=== PATIENT | male | born 1965 | race Caucasian/White ===

== ENCOUNTER 2021-07-11 16:14 | Emergency (ER) | payer OTHER, SELFPAY ==
[2021-07-11 16:24] VITALS: BP 137/88; PULSE 81; RESP 18; TEMP 36.7; O2SAT 98
--- NOTE | 2021-07-11 17:04 | ED.WOUNDLAC ---
HPI - Wound/Laceration General Chief Complaint: Wound/Laceration Stated Complaint: cut in head Time Seen by Provider: 07/11/21 17:05 Source: patient and RN notes reviewed Mode of arrival: ambulatory Limitations: no limitations History of Present Illness HPI narrative: 55-year-old male presents concern for puncture wound to the back of the head. Reports yesterday he was in the attic, hit the back of his head on a nail. Reports he saw his primary care doctor who evaluated him today for the injury. Reports he was sent here for tetanus vaccination. He denies any loss of consciousness, headache, vomiting Related Data Home Medications Medication Instructions Recorded Confirmed cephalexin 07/11/21 ergocalciferol (vitamin D2) 07/11/21 lorazepam 07/11/21 losartan 07/11/21 metformin mg 07/11/21 metoprolol succinate PO 07/11/21 omeprazole 07/11/21 simvastatin mg 07/11/21 Allergies Allergy/AdvReac Type Severity Reaction Status Date / Time No Known Allergies Allergy Verified 03/02/19 18:43 Review of Systems Review of Systems: CONSTITUTIONAL: Denies malaise, chills, sweats, or fever. EYES: Denies visual changes SKIN: Reports puncture wound to the back of the head GI: Denies vomiting NEUROLOGIC: Denies headache. All systems reviewed & are unremarkable except as noted in HPI and below PMFSH Comments At time of signature, agree with nursing past medical, surgical, social and family history. There is no relevant family history pertinent to the presenting complaint Exam Narrative: GENERAL: Well-appearing, well-nourished, and in no acute distress. HEAD: Normocephalic, atraumatic. EYES: PERRLA, conjunctivae clear, and EOMI. ENT: Mucous membranes moist. NECK: Supple. No lymphadenopathy CHEST: Clear to auscultation. No respiratory distress. HEART: Regular rate and rhythm. SKIN: Warm, dry. 1 cm irregular laceration, scabbed, approximated noted to the posterior scalp NEURO: Alert and oriented x3. No focal deficits PSYCH: Normal mood and affect Course Course Emergency Course: Patient is aware of diagnosis, understands and agrees to treatment plan. Anticipatory guidance given. Patient agrees to follow-up as directed and is aware of reasons to seek care at the emergency department. Portions of this record may have been created with voice recognition software Vital Signs Vital signs: Vital Signs Temperature 98.1 F 07/11/21 16:24 Pulse Rate 81 07/11/21 16:24 Respiratory Rate 18 07/11/21 16:24 Blood Pressure 137/88 07/11/21 16:24 Pulse Oximetry 98 07/11/21 16:24 Temperature 98.1 F 07/11/21 16:24 Pulse Rate 81 07/11/21 16:24 Respiratory Rate 18 07/11/21 16:24 Blood Pressure 137/88 07/11/21 16:24 Pulse Oximetry 98 07/11/21 16:24 Reviewed. MDM - Wound/Laceration MDM Narrative Medical decision making narrative: Exam findings show no acute concerns or changes; patient is non-toxic appearing and is in no distress. Patient is appropriate for outpatient treatment and follow-up. Critical Care Time Critical Care Time Critical Care Time: No Discharge Plan Discharge Clinical Impression: Laceration Patient Disposition: Home, Self-Care Condition: Stable Instructions: Laceration (ED) Additional Instructions: Keep wound clean, and dry. Apply antibiotic ointment twice daily. Cover with bandage as needed to prevent contamination. Clean with soap and water twice daily, but do not soak, take baths, or swim until wound is completely healed. Do not clean with hydrogen peroxide. If any signs of infection such as redness, swelling, increasing pain, drainage of purulent discharge, streaks up your extremity develop, seek medical attention immediately. Prescriptions: No Action losartan 50 mg tablet RF: 0 metformin 500 mg tablet RF: 0 metoprolol succinate 50 mg tablet extended release 24 hr PO RF: 0 cephalexin 500 mg capsule
[2021-07-11] MEDS: TETANUS,DIPHTHERIA,AC PERTUSSIS ADULT (0.5 ML) BOOSTRIX IM (17:09)
== END 2021-07-11 17:19 | disposition home or self-care (01) ==
PROVIDERS: Emergency Provider Nurse Practitioner; PCP Emergency Medicine
DX: S01.01XA Laceration without foreign body of scalp, initial encounter (principal); W45.0XXA Nail entering through skin, initial encounter; Z23 Encounter for immunization; E78.00 Pure hypercholesterolemia, unspecified; I10 Essential (primary) hypertension; K21.9 Gastro-esophageal reflux disease without esophagitis; E11.9 Type 2 diabetes mellitus without complications
CPT/HCPCS: 90471; 90715; 99212; G0463

== ENCOUNTER 2023-07-02 15:31 | Outpatient (CLI) | payer OTHER, SELFPAY ==
--- NOTE | ~2023-07-02 | XR_ITS ---
EXAMINATION: XR ankle RT min 3V DATE: 07/02/2023 15:53 INDICATION: Right ankle pain and swelling. TECHNIQUE: 4 views of right ankle were obtained. COMPARISON: None. FINDINGS: Bone alignment is normal. No fracture. There is mild midfoot osteoarthritis. There is mild ankle joint osteoarthritis. There are enthesophytes at the posterior and plantar aspects of calcaneal tuberosity. There is ankle soft tissue swelling. IMPRESSION: 1. Mild particular osteoarthritis. Reviewed, dictated and finalized at location A.
--- NOTE | ~2023-07-02 | US_ITS ---
EXAMINATION: US venous doppler LE RT DATE: 07/02/2023 16:10 INDICATION: Right lower limb pain and swelling. TECHNIQUE: Grayscale ultrasound images without and with compression and Doppler ultrasound images of the right lower extremity veins were obtained. COMPARISON: None. FINDINGS: The visualized portions of right common femoral vein, profunda (deep) femoral vein, femoral vein, per dasilva veins, posterior tibial veins, and greater saphenous vein outflow are patent. There is thrombus in right popliteal vein. There is a moderate-sized Kwan's cyst. IMPRESSION: 1. Deep vein thrombosis involving right popliteal vein. 2. Moderate-sized right Kwan's cyst. Reviewed, dictated and finalized at location A.
== END 2023-07-02 15:32 | disposition home or self-care (01) ==
PROVIDERS: PCP Emergency Medicine; Visit Provider Emergency Medicine
DX: M79.89 Other specified soft tissue disorders (principal); M19.071 Primary osteoarthritis, right ankle and foot; I82.431 Acute embolism and thrombosis of right popliteal vein; M71.21 Synovial cyst of popliteal space [Baker], right knee
CPT/HCPCS: 73610; 93971

== ENCOUNTER 2023-07-02 16:39 | Emergency (ER) | payer OTHER, SELFPAY ==
[2023-07-02 16:51] VITALS: BP 175/89; PULSE 73; RESP 16; TEMP 36.7; O2SAT 98
--- NOTE | 2023-07-02 18:11 | ED.EXTPRO ---
HPI - Extremity Problem General Chief complaint: Extremity Problem,Nontraumatic Stated complaint: Positive RLE US Time Seen by Provider: 07/02/23 17:39 History of Present Illness HPI Narrative: Patient is a 57-year-old male presenting with abnormal ultrasound. Patient states that his right foot has been swollen for several days. He called his PCP who ordered imaging which was obtained today and revealed a DVT so he was advised to come to the ER. He denies chest pain, lightheadedness, shortness of breath. Denies recent injuries, immobilization, surgery. Denies further complaints. Related Data Home Medications Medication Instructions Recorded Confirmed cephalexin 500 mg capsule 07/11/21 ergocalciferol (vitamin D2) 1,250 07/11/21 mcg (50,000 unit) capsule lorazepam 1 mg tablet 07/11/21 losartan 50 mg tablet 07/11/21 metformin 500 mg tablet mg 07/11/21 metoprolol succinate 50 mg PO 07/11/21 tablet,extended release 24 hr omeprazole 20 mg capsule,delayed 07/11/21 release simvastatin 20 mg tablet mg 07/11/21 Allergies Allergy/AdvReac Type Severity Reaction Status Date / Time No Known Allergies Allergy Verified 03/02/19 18:43 Review of Systems Review of Systems: All systems reviewed & are unremarkable except as noted in HPI and below Exam Narrative: GENERAL: Well-appearing and in no acute distress. Pleasant cooperative HEAD: Normocephalic, atraumatic. EYES: PERRLA and EOMI. ENT: Mucous membranes moist. NECK: Supple. CHEST: Clear to auscultation. No respiratory distress. HEART: Regular rate and rhythm. Normal peripheral pulses. ABDOMEN: Nondistended, nontender EXTREMITIES: Normal range of motion. Mild edema and erythema of the right foot and ankle, DP pulses 2+ bilaterally SKIN: Warm, dry, no rash. NEURO: Alert and oriented x3. PSYCH: Normal mood and affect. Course Vital Signs Vital signs: Vital Signs Temperature 98.1 F 07/02/23 16:51 Pulse Rate 73 07/02/23 16:51 Respiratory Rate 16 07/02/23 16:51 Blood Pressure 175/89 H 07/02/23 16:51 Pulse Oximetry 98 07/02/23 16:51 Oxygen Delivery Room Air 07/02/23 16:51 Temperature 98.1 F 07/02/23 16:51 Pulse Rate 73 07/02/23 16:51 Respiratory Rate 16 07/02/23 16:51 Blood Pressure 175/89 H 07/02/23 16:51 Pulse Oximetry 98 07/02/23 16:51 Oxygen Delivery Room Air 07/02/23 16:51 MDM - Extremity (Nontraumatic) MDM Narrative Medical decision making narrative: Patient is a 57-year-old male presenting with a DVT in his right leg per outpatient ultrasound. Vitals are stable. He denies any chest pain, shortness of breath, lightheadedness. He is not tachycardic or hypoxic. 2+ DP pulses bilaterally. We will start him on Eliquis starter pack and advised close PCP follow-up. Strict return precautions were given. Patient voiced understanding and is agreeable with plan. Discharged in stable condition. Differential Diagnosis Differential diagnosis: Likely superficial thrombophlebitis, lower extremity edema and deep vein thrombosis of lower extremity Medical Records Attestation: I reviewed the patient's medical records. Critical Care Time Critical Care Time Critical Care Time: No Discharge Plan Discharge Clinical Impression: Deep vein thrombosis of lower extremity Patient Disposition: Home, Self-Care Condition: Stable Instructions: Apixaban (By mouth), Deep Vein Thrombosis (DC) Additional Instructions: The ultrasound today shows a blood clot in your right leg. Please start the blood thinners as prescribed. Please make sure that you follow-up closely with your PCP. If your symptoms worsen, you develop chest pain, shortness of breath, numbness or weakness, vomiting, fevers >100.4F, or other concerning symptoms arise, please return to the ER. Prescriptions: New Eliquis DVT-PE Treat 30D Start 5 mg (74 tabs) tablets,dose pack See Rx Instructions .ROUTE .COMPLEX Qty: 74 0RF Rx I
== END 2023-07-02 18:53 | disposition home or self-care (01) ==
PROVIDERS: Emergency Provider Emergency Medicine; PCP Emergency Medicine
DX: I82.401 Acute embolism and thrombosis of unspecified deep veins of right lower extremity (principal); Z79.84 Long term (current) use of oral hypoglycemic drugs
CPT/HCPCS: 73610; 93971; 99283

== ENCOUNTER 2023-08-17 15:37 | Emergency (ER) | payer OTHER, MEDICAID, SELFPAY ==
[2023-08-17 15:50] VITALS: BP 154/85; PULSE 91; RESP 18; TEMP 36.7; O2SAT 98
[2023-08-17] MEDS: LIDOCAINE HCL 1% LOCAL INJ 2 ML AMPUL 6 ML INFILTRATE (16:01)
--- NOTE | 2023-08-17 16:06 | ED.SKABFB ---
HPI - Skin/Abscess/Foreign Bdy General Chief complaint: Skin/Abscess/Foreign Body Stated complaint: left thumb injury Time Seen by Provider: 08/17/23 15:53 Source: patient and RN notes reviewed Mode of arrival: ambulatory Limitations: no limitations History of Present Illness HPI narrative: Patient presents today complaining of pain and swelling to his left thumb at the finger nail fold x3 days. States 2 days prior to onset he was chewing on the cuticle area. No [id number] treatment prior to arrival. Denies numbness or tingling. Related Data Home Medications Medication Instructions Recorded Confirmed ergocalciferol (vitamin D2) 1,250 07/11/21 mcg (50,000 unit) capsule lorazepam 1 mg tablet 07/11/21 losartan 50 mg tablet 07/11/21 metformin 500 mg tablet mg 07/11/21 metoprolol succinate 50 mg PO 07/11/21 tablet,extended release 24 hr omeprazole 20 mg capsule,delayed 07/11/21 release simvastatin 20 mg tablet mg 07/11/21 Allergies Allergy/AdvReac Type Severity Reaction Status Date / Time No Known Allergies Allergy Verified 08/17/23 15:40 Review of Systems Review of Systems: CONSTITUTIONAL: Denies body aches, fever, chills, or sweats. EYES: Denies visual changes, redness, or discharge. ENT: Denies rhinorrhea, congestion, sore throat, or otalgia. CARDIOVASCULAR: Denies chest pain, palpitations, or edema. RESPIRATORY: Denies cough or dyspnea. GASTROINTESTINAL: Denies abdominal pain, nausea, vomiting, or diarrhea. GENITOURINARY: Denies dysuria or hematuria. SKIN: + swelling and pain to the left thumb MUSCULOSKELETAL: Denies back pain, joint pain, or myalgia. NEUROLOGIC: Denies headache, numbness, tingling, or weakness. PSYCH: Denies depression or anxiety. [facility] Past Medical History Medical History (Updated 08/17/23 @ 16:12 by Salma Pleitez, [facility], ) Diabetes DVT (deep venous thrombosis) High cholesterol Hypertension Comments At time of signature, I have reviewed and agree with nursing past medical, surgical, social and family history unless otherwise noted. Please see nursing chart for further information. There is no relevant family history pertinent to the presenting complaint Exam Narrative: GENERAL: Well-appearing, well-nourished, and in no acute distress. HEAD: Normocephalic, atraumatic. EYES: EOMI. No redness or drainage. Conjunctivae normal. ENT: Mucous membranes pink and moist. NECK: Normal AROM. CHEST: No respiratory distress. EXTREMITIES: Left thumb: Tenderness, mild edema to the nail fold with purulent green drainage underneath the skin. Fingernail is unaffected SKIN: Warm, dry, no rash. Capillary refill normal. Normal skin turgor. NEURO: No focal deficits. Alert and oriented x3. Gait steady. PSYCH: Normal affect. No signs of depression or anxiety. Course Course Level of Care: Express Care Visit Vital Signs Vital signs: Vital Signs Temperature 98.1 F 08/17/23 15:50 Pulse Rate 91 08/17/23 15:50 Respiratory Rate 18 08/17/23 15:50 Blood Pressure 154/85 H 08/17/23 15:50 Pulse Oximetry 98 08/17/23 15:50 Oxygen Delivery Room Air 08/17/23 15:50 Temperature 98.1 F 08/17/23 15:50 Pulse Rate 91 08/17/23 15:50 Respiratory Rate 18 08/17/23 15:50 Blood Pressure 154/85 H 08/17/23 15:50 Pulse Oximetry 98 08/17/23 15:50 Oxygen Delivery Room Air 08/17/23 15:50 Reviewed Procedures Abscess I/D hand: Date of Incision: 08/17/23 Time of Incision: 16:15 Side (if applicable): left Local Anesthetic: none (Digital block) Technique: incised with #11 blade Amount of fluid expressed (mL): 0.5 Irrigation: No Packing used?: none I&D Results: Pus and Blood Abcess I&D Additional Comments: Dressed with Band-Aid. Nerve Block Nerve Block 1: Nerve block date: 08/17/23 Nerve block time: 16:10 Time out performed: No Local Ane
== END 2023-08-17 16:25 | disposition home or self-care (01) ==
PROVIDERS: Emergency Provider Nurse Practitioner; PCP Emergency Medicine
DX: L03.012 Cellulitis of left finger (principal); E11.9 Type 2 diabetes mellitus without complications; E78.00 Pure hypercholesterolemia, unspecified; I10 Essential (primary) hypertension; Z86.718 Personal history of other venous thrombosis and embolism
CPT/HCPCS: 10060; 99213; G0463

== ENCOUNTER → 2023-09-18 15:28 | Outpatient (CLI) | payer OTHER, MEDICAID, SELFPAY ==
--- NOTE | ~2023-09-18 | US_ITS ---
EXAMINATION:US venous doppler LE RT INDICATION:Right leg pain. History of Kwan's cyst TECHNIQUE: Multiple grayscale, color flow and Doppler images of the right lower extremity deep venous systems were obtained and reviewed. COMPARISON:Ultrasound dated 07/02/2023 FINDINGS: The common femoral, superficial femoral and popliteal veins demonstrate normal respiratory variation, augmentation and compressibility. Color flow is also seen within the posterior tibial, pe roneal, greater saphenous and profunda veins. There is a right Kwan's cyst measuring 4.4 x 1.8 x 3.5 cm. IMPRESSION: 1: No lower extremity deep venous thrombosis. Reviewed, dictated and finalized at location L. [employer]
== END ==
PROVIDERS: PCP Internal Medicine Hematology & Oncology; Visit Provider Internal Medicine Hematology & Oncology
DX: I82.431 Acute embolism and thrombosis of right popliteal vein (principal)
CPT/HCPCS: 93971

== ENCOUNTER 2023-10-05 17:22 | Emergency (ER) | payer OTHER, MEDICAID, SELFPAY ==
--- NOTE | 2023-10-05 17:27 | ED.SKABFB ---
HPI - Skin/Abscess/Foreign Bdy General Chief complaint: Skin/Abscess/Foreign Body Stated complaint: lump under left arm Time Seen by Provider: 10/05/23 17:39 Source: patient and RN notes reviewed Mode of arrival: ambulatory Limitations: dementia History of Present Illness HPI narrative: 57-year-old male presents with concern for a painful lump under his left arm. Reports he noticed it last night. Reports history of having something similar under his arm, he also reports having to have something drained on his right elbow in the past. He denies fever, aches, chills, sweats. Reports a small amount of drainage from the area MD complaint: other (Redness) Related Data Home Medications Medication Instructions Recorded Confirmed ergocalciferol (vitamin D2) 1,250 1,250 mcg PO WEEKLY 10/05/23 10/05/23 mcg (50,000 unit) capsule losartan 50 mg tablet 50 mg PO DIRECTED 10/05/23 10/05/23 metformin 500 mg tablet 500 mg PO DIRECTED 10/05/23 10/05/23 metoprolol succinate 50 mg 50 mg PO DIRECTED 10/05/23 10/05/23 tablet,extended release 24 hr Allergies Allergy/AdvReac Type Severity Reaction Status Date / Time No Known Allergies Allergy Verified 10/05/23 17:35 Review of Systems Review of Systems: CONSTITUTIONAL: Denies malaise, chills, sweats, or fever. EYES: Denies redness, or discharge. ENT: Denies rhinorrhea, congestion, swollen lips, swollen tongue CARDIOVASCULAR: Denies chest pain, palpitations, or edema. RESPIRATORY: Denies cough or dyspnea. GASTROINTESTINAL: Denies abdominal pain, nausea, vomiting SKIN: Reports redness, swelling, tenderness in the left axilla with a small amount of drainage. Denies vesicles, bullae, numbness, pain beyond proportion MUSCULOSKELETAL: Denies joint pain or myalgia. NEUROLOGIC: Denies headache. All systems reviewed & are unremarkable except as noted in HPI and below PMFSH Past Medical History Medical History (Updated 10/05/23 @ 17:47 by Donna Montgomery NP) Diabetes DVT (deep venous thrombosis) High cholesterol Hypertension Comments At time of signature, agree with nursing past medical, surgical, social and family history. There is no relevant family history pertinent to the presenting complaint Exam Narrative: GENERAL: Well-appearing, well-nourished, and in no acute distress. HEAD: Normocephalic, atraumatic. EYES: PERRLA, conjunctivae clear ENT: Mucous membranes moist. NECK: Supple. No lymphadenopathy CHEST: Clear to auscultation. No respiratory distress. HEART: Regular rate and rhythm. SKIN: Warm, dry. Erythema, induration, tenderness, warmth with sharp margins and fluctuation noted in the left axilla. No vesicles, bullae, necrosis, ecchymosis, crepitus noted. NEURO: Alert and oriented x3. PSYCH: Normal mood and affect Course Course Emergency Course: Patient is aware of diagnosis, understands and agrees to treatment plan. Anticipatory guidance given. Patient agrees to follow-up as directed and is aware of reasons to seek care at the emergency department. Portions of this record may have been created with voice recognition software Level of Care: Express Care Visit Vital Signs Vital signs: Reviewed. Procedures Abscess I/D upper extremity: Date of Incision: 10/05/23 Time of Incision: 17:48 Local Anesthetic: lidocaine 1% Amount of anesthesia used (mL): 4 Technique: incised with #11 blade Amount of fluid expressed (mL): 15 Irrigation: Yes Packing used?: iodoform MDM - Skin/Abscess/Foreign Bdy MDM Narrative Medical decision making narrative: Does not appear at this time to be erythema multiforme, bullous, SJS, TEN; no evidence at this time to suggest RMSF, NSTI, endocarditis or Lyme disease; patient looks well, nontoxic and is tolerating oral intake; no neurologic signs or symptoms; no headache, photophobia or neck pain; afebrile. Patient does not have history of of penetrating trauma, lacerati
[2023-10-05 17:32] VITALS: BP 132/75; PULSE 87; RESP 16; TEMP 37.2; O2SAT 99
== END 2023-10-05 18:11 | disposition home or self-care (01) ==
PROVIDERS: Emergency Provider Nurse Practitioner; PCP Emergency Medicine
DX: L02.412 Cutaneous abscess of left axilla (principal); E11.9 Type 2 diabetes mellitus without complications; E78.00 Pure hypercholesterolemia, unspecified; I10 Essential (primary) hypertension; Z86.718 Personal history of other venous thrombosis and embolism; Z79.84 Long term (current) use of oral hypoglycemic drugs
CPT/HCPCS: 10061; 87070; 87075; 87205; 99213; G0463

== ENCOUNTER 2023-10-06 19:07 | Emergency (ER) | payer OTHER, MEDICAID, SELFPAY ==
[2023-10-06 19:15] VITALS: BP 150/94; PULSE 87; RESP 18; TEMP 36.7; O2SAT 100
--- NOTE | 2023-10-06 19:20 | ED.WOUNDLAC ---
HPI - Wound/Laceration General Chief Complaint: Wound/Laceration Stated Complaint: Wound Check Time Seen by Provider: 10/06/23 19:20 Source: patient Mode of arrival: ambulatory Limitations: no limitations History of Present Illness HPI narrative: 57 yo M presents for wound check. Pt had I and D yesterday at [facility] and was told to remove packing today. States when he got in shower he couldn't find packing to remove and is worried and it's stuck inside abscess. All systems reviewed and negative except as noted above. Related Data Home Medications Medication Instructions Recorded Confirmed ergocalciferol (vitamin D2) 1,250 1,250 mcg PO WEEKLY 10/05/23 10/05/23 mcg (50,000 unit) capsule losartan 50 mg tablet 50 mg PO DIRECTED 10/05/23 10/05/23 metformin 500 mg tablet 500 mg PO DIRECTED 10/05/23 10/05/23 metoprolol succinate 50 mg 50 mg PO DIRECTED 10/05/23 10/05/23 tablet,extended release 24 hr Allergies Allergy/AdvReac Type Severity Reaction Status Date / Time No Known Allergies Allergy Verified 10/05/23 17:35 Review of Systems Review of Systems: CONSTITUTIONAL: Denies fever, chills, or sweats. EYES: Denies visual changes, redness, or discharge. ENT: Denies rhinorrhea, congestion, sore throat, or otalgia. CARDIOVASCULAR: Denies chest pain, palpitations, or edema. RESPIRATORY: Denies cough or dyspnea. GASTROINTESTINAL: Denies abdominal pain, nausea, vomiting, or diarrhea. GENITOURINARY: Denies dysuria or hematuria. SKIN: Denies rash or itching. Here for wound check MUSCULOSKELETAL: Denies back pain, joint pain, or myalgia. NEUROLOGIC: Denies headache, numbness, or weakness. PSYCHIATRIC: Denies anxiety or depression. All other systems reviewed are negative, except as documented in HPI. [facility] Past Medical History Medical History (Updated 10/07/23 @ 00:01 by Background Daemon) Diabetes DVT (deep venous thrombosis) High cholesterol Hypertension Comments At time of signature, agree with nursing past medical, surgical, social and family history. There is no relevant family history pertinent to the presenting complaint. Exam Narrative: GENERAL: This is a well-nourished, well-developed patient, in no apparent distress. HEAD: normocephalic, atraumatic. EYES: PERRL. Sclera clear/white. Vision is grossly intact. EARS: External ears normal NOSE: External nose normal NECK: Neck supple, non-tender without lymphadenopathy, masses or thyromegaly. CARDIOVASCULAR: Regular rate and rhythm without murmurs, gallops, or rubs. RESPIRATORY: Clear to auscultation. Breath sounds equal bilaterally. No wheezes, rales, or rhonchi. SKIN: warm, Dry, intact with no suspicious lesions or rash, good texture and turgor. fluctuant abscess to L axilla with small incision noted. no packing material. erythematous and tender on palpation. NEURO: awake, alert, and oriented to person, place and time. There were no obvious focal neurologic abnormalities. EXTREMITIES: No joint tenderness, effusion, or edema noted. Course Course Level of Care: Express Care Visit Vital Signs Vital signs: Vital Signs Temperature 36.7 C 10/06/23 19:15 Pulse Rate 87 10/06/23 19:15 Respiratory Rate 18 10/06/23 19:15 Blood Pressure 150/94 H 10/06/23 19:15 Pulse Oximetry 100 10/06/23 19:15 Oxygen Delivery Room Air 10/06/23 19:15 Temperature 36.7 C 10/06/23 19:15 Pulse Rate 87 10/06/23 19:15 Respiratory Rate 18 10/06/23 19:15 Blood Pressure 150/94 H 10/06/23 19:15 Pulse Oximetry 100 10/06/23 19:15 Oxygen Delivery Room Air 10/06/23 19:15 reviewed Procedures Other Procedure Procedure 1: Other Procedure: edwin clamp used to break up loculations due to significant fluctuance of abscess. a lot of thick white cyst like drainage and also purulent drainage noted. No packing material found. new packing placed. MDM - Wound/Laceration MDM Narrative Medical decision making narrativ
--- NOTE | 2023-10-06 19:54 | PC.NURSE ---
Wound check done, wound opened up and packing applied. Dressing applied per [employer]
== END 2023-10-06 19:39 | disposition home or self-care (01) ==
PROVIDERS: Emergency Provider Nurse Practitioner Family; PCP Emergency Medicine
DX: L02.412 Cutaneous abscess of left axilla (principal); E11.9 Type 2 diabetes mellitus without complications; I10 Essential (primary) hypertension
CPT/HCPCS: 10060; 99212; G0463

== ENCOUNTER 2023-10-14 14:56 | Outpatient (CLI) | payer OTHER, MEDICAID, SELFPAY ==
[2023-10-16 22:34] LABS: Antithrombin III Activity 101 % normal (80-135)
[2023-10-17 04:55] LABS: Lupus dRVVT Screen 38 sec (<=45); PTT-LA Screen 31 sec (<=40)
[2023-10-19 01:33] LABS: Factor V (Leiden) Mutation NEGATIVE
== END 2023-10-14 14:57 | disposition home or self-care (01) ==
LOC: ANHLAB 14:58
PROVIDERS: PCP Emergency Medicine; Visit Provider Internal Medicine Hematology & Oncology
DX: D68.69 Other thrombophilia (principal)
CPT/HCPCS: 36415; 81240; 81241; 83090; 85300; 85303; 85306; 85613; 85730; 86146

== ENCOUNTER 2024-02-11 15:27 | Outpatient (CLI) | payer OTHER, MEDICAID, SELFPAY ==
[2024-02-13 12:14] LABS: Homocysteine 12.8 umol/L (<11.4)
== END 2024-02-11 15:28 | disposition home or self-care (01) ==
LOC: ANHLAB 15:29
PROVIDERS: PCP Emergency Medicine; Visit Provider Internal Medicine Hematology & Oncology
DX: D68.69 Other thrombophilia (principal)
CPT/HCPCS: 36415; 83090

== ENCOUNTER 2024-08-19 08:36 | Outpatient (CLI) | payer OTHER, MEDICAID, SELFPAY ==
[2024-08-19 08:48] LABS: Basophils Absolute Auto 0.1 K/mm3 (0.0-0.1); Basophils Percent Auto 0.6 % (0.2-1.2); Eosinophils Absolute Auto 0.1 K/mm3 (0-0.3); Eosinophils Percent Auto 1.4 % (0-4.4); Hematocrit 45.9 % (42.0-52.0); Hemoglobin 15.6 g/dL (14.0-18.0); Immature Granulocyte Absolute 0.03 K/mm3 (0.00-0.031); Immature Granulocyte Percent A 0.3 % (0-0.5); Lymphocytes Absolute Auto 0.96 K/mm3 (0.9-3.2); Lymphocytes Percent Auto 10.9 % (18.3-44.2); Mean Corpuscular Hemoglobin 29.6 pg (26-34); Mean Corpuscular Volume 87.1 fl (80-100); Mean Platelet Volume 9.7 fl (7.4-10.4); Monocytes Absolute Auto 0.7 K/mm3 (0.1-0.6); Monocytes Percent Auto 7.8 % (2.6-8.5); Platelet Count Result 223 k/mm3 (150-375); Red Blood Count 5.27 M/mm3 (4.6-6.20); Red Cell Distribution Width 12.9 % (11.5-14.5); White Blood Count 8.8 K/mm3 (4.5-10.0)
[2024-08-19 12:24] LABS: Folic Acid > 20.0 ng/mL (2.76->20)
[2024-08-23 11:38] LABS: Homocysteine 13.6 umol/L (<11.4)
== END 2024-08-19 08:37 | disposition home or self-care (01) ==
LOC: ANHLAB 08:37
PROVIDERS: PCP Emergency Medicine; Visit Provider Internal Medicine Hematology & Oncology
DX: D68.69 Other thrombophilia (principal)
CPT/HCPCS: 36415; 82607; 82746; 83090; 85025

== ENCOUNTER 2024-08-20 17:19 | Emergency (ER) | payer OTHER, SELFPAY ==
--- NOTE | 2024-08-20 17:20 | ED_ITS ---
HPI - URI/Sore Throat General Chief Complaint: Upper Respiratory Infection Stated Complaint: cough,congestion,fever Time Seen by Provider: 08/20/24 17:20 Source: patient Mode of arrival: ambulatory Limitations: no limitations History of Present Illness HPI Narrative: Billy is a 58-year-old male patient presenting to the clinic today with complaints of cough, congestion, and fever since last night. He reports some no chest pain or shortness of breath. Temperature today is 100.7F in the clinic. Denies any chills or body aches. MD elicited complaint: sore throat and nasal congestion Related Data Home Medications Medication Instructions Recorded Confirmed ergocalciferol (vitamin D2) 1,250 1,250 mcg PO WEEKLY 10/05/23 08/20/24 mcg (50,000 unit) capsule losartan 50 mg tablet 50 mg PO DIRECTED 10/05/23 08/20/24 metformin 500 mg tablet 500 mg PO DIRECTED 10/05/23 08/20/24 metoprolol succinate 50 mg 50 mg PO DIRECTED 10/05/23 08/20/24 tablet,extended release 24 hr Allergies Allergy/AdvReac Type Severity Reaction Status Date / Time No Known Allergies Allergy Verified 08/20/24 17:26 Review of Systems Review of Systems: Pertinent positives per HPI. Patient denies any chills, rash, headache, visual changes, dizziness, shortness of breath, chest pain, palpitations, nausea, vomiting, diarrhea, constipation, abdominal pain, or any urinary issues. [facility] Past Medical History Medical History Diabetes DVT (deep venous thrombosis) High cholesterol Hypertension Comments At the time of my signature, I reviewed and agree with the nursing past medical, surgical, social, and family history. There is no relevant family history pertinent to the patient complaint. Exam Narrative: General: Well-developed, obese, in no apparent distress Head: Normocephalic, atraumatic Eyes: Pupils equally round and reactive to light bilaterally, EOM intact, sclera and conjunctive clear, no discharge, lids normal Ears: TMs intact and just, ear canals clear, no drainage, grossly hearing normal. Nose: Nares patent, clear nasal discharge, no inflammation, no sinus tenderness. Mouth: Oral pharynx without lesions or masses, good dentition, MMM. Neck: Supple, trachea midline, no enlargement of anterior or posterior cervical nodes, no thyroid masses or goiter palpable. Cardio: Regular rate and rhythm, s1 and s2 normal, no murmur appreciated. Resp: Clear to auscultation bilaterally, no rhonchi, rales, wheezing or rubs Course Course Emergency Course: Portions of this record may have been created with voice recognition software. Level of Care: Express Care Visit Vital Signs Vital signs: Vital signs reviewed MDM - URI/Sore Throat MDM Narrative Medical decision making narrative: At the time of visit patient is resting comfortably on the exam table. Patient appears to be nontoxic. Labs: COVID and influenza testing was performed and was negative in the clinic today. Plan: COVID and influenza testing was negative. I suspect patient has URI. Supportive measures were discussed with the patient and they voiced understanding discharge instructions and agrees to treatment plan. Return precautions reviewed Differential Diagnosis Differential diagnosis: Likely upper respiratory infection, otitis media, sinusitis, viral infection, bronchitis, influenza, pharyngitis and other (COVID) Discharge Plan Discharge Clinical Impression: Upper respiratory infection Patient Disposition: Home, Self-Care Condition: Stable Instructions: Antibiotic Form, Cold Symptoms (ED) Additional Instructions: Lung sounds are clear in the clinic today No sign of bacterial infection COVID and influenza testing was negative May take DayQuil NyQuil for cold/flu symptoms Increase fluids and stay well hydrated Tylenol/motrin for pain/fever Flonase and OTC antihistamines as directed Vicks vapor rub to open sinuses Sinus rinses for congestion Cepacol spray, cough drops, throat lozenges, warm tea with honey/lemon, gargle salt water to soothe throat BRAT diet for diarrhea Clear liquids x 24 hours then advance as tolerated for nausea/vomiting Go to the ED if you develop a worsening in your condition- high fever not controlled by Tylenol or Motrin, dehydration, weakness, lethargy, shortness of breath, or chest pain. Follow up with your PCP in 3-5 days if symptoms persist. Prescriptions: No Action losartan 50 mg tablet 50 mg PO DIRECTED metformin 500 mg tablet 500 mg PO DIRECTED metoprolol succinate 50 mg tablet extended release 24 hr 50 mg PO DIRECTED ergocalciferol (vitamin D2) 1,250 mcg (50,000 unit) capsule 1,250 mcg PO WEEKLY Follow-up/Referrals: Joni Delgado MD [Primary Care Provider] - Stand Alone Forms: Work/School Release IP Time of Disposition: 17:57 Quality NIHSS Nursing Documentation ED NIHSS nursing documentation: reviewed/agree
[2024-08-20 17:25] VITALS: BP 143/91; PULSE 99; RESP 14; TEMP 38.2; O2SAT 99
[2024-08-20 17:57] LABS: EDCOVIDSCREEN Negative (Negative); EDINFLUASCREEN Negative (Negative); EDINFLUBSCREEN Negative (Negative)
== END 2024-08-20 18:04 | disposition home or self-care (01) ==
PROVIDERS: Emergency Provider Nurse Practitioner Family; PCP Emergency Medicine
DX: J06.9 Acute upper respiratory infection, unspecified (principal); Z20.822 Contact with and (suspected) exposure to COVID-19; E11.9 Type 2 diabetes mellitus without complications; Z79.84 Long term (current) use of oral hypoglycemic drugs; I10 Essential (primary) hypertension; E78.00 Pure hypercholesterolemia, unspecified; Z86.718 Personal history of other venous thrombosis and embolism
CPT/HCPCS: 87426; 87804; 99212; G0463

== ENCOUNTER 2025-07-09 18:28 | Emergency (ER) | payer OTHER, SELFPAY ==
--- NOTE | 2025-07-09 18:31 | ED.GENADULT ---
HPI - General Adult General Chief complaint: Wound/Laceration Stated complaint: Pain & Swelling in left leg Time Seen by Provider: 07/09/25 18:31 Source: patient Mode of arrival: ambulatory Limitations: no limitations Related Data Home Medications ?Medication ?Instructions ?Recorded ?Confirmed ?Last Taken ?Type losartan 50 mg tablet 50 mg PO DIRECTED 10/05/23 07/09/25 Unknown History metformin 500 mg tablet 500 mg PO DIRECTED 10/05/23 07/09/25 Unknown History metoprolol succinate 50 mg 50 mg PO DIRECTED 10/05/23 07/09/25 Unknown History tablet,extended release 24 hr Allergies Allergy/AdvReac Type Severity Reaction Status Date / Time No Known Allergies Allergy Verified 07/09/25 18:30 Review of Systems Review of Systems: CONSTITUTIONAL: Denies fever, chills, or sweats. EYES: Denies visual changes, redness, or discharge. ENT: Denies rhinorrhea, congestion, sore throat, or otalgia. CARDIOVASCULAR: Denies chest pain, palpitations, or edema. RESPIRATORY: Denies cough or dyspnea. GASTROINTESTINAL: Denies abdominal pain, nausea, vomiting, or diarrhea. GENITOURINARY: Denies dysuria or hematuria. SKIN: Denies rash or itching. MUSCULOSKELETAL: Denies back pain, joint pain, or myalgia. NEUROLOGIC: Denies headache, numbness, or weakness. PSYCHIATRIC: Denies anxiety or depression. [facility] Past Medical History Medical History Diabetes High cholesterol Hypertension DVT (deep venous thrombosis) Comments At the time of my signature I agree with nursing past medical history, surgical, social, and family history. There is no relevant family history pertinent to the presenting complaint. Exam Narrative: GENERAL: Well-appearing, well-nourished, and in no acute distress. HEAD: Normocephalic, atraumatic. EYES: PERRLA and EOMI. ENT: Nares clear, no rhinorrhea or epistaxis. Mucous membranes moist. NECK: Supple. No lymphadenopathy CHEST: Clear to auscultation. No respiratory distress. HEART: Regular rate and rhythm. No murmur heard. Normal peripheral pulses. ABDOMEN: Soft, nontender, nondistended, normal active bowel sounds. EXTREMITIES: Normal range of motion. No edema. And tingling noted to the foot. Patient has redness, swelling and erythema noted to the left anterior lower leg with some scabbing present the area measuring approximately 4 x 3 cm, and warm to the touch and tender. SKIN: Warm, dry, no rash. NEURO: No focal deficits. Alert and oriented x3. Course Course Level of Care: Express Care Visit Vital Signs Vital signs: Vital Signs Temperature 37.1 C 07/09/25 18:36 Pulse Rate 88 07/09/25 18:36 Respiratory Rate 16 07/09/25 18:36 Blood Pressure 142/88 H 07/09/25 18:36 Pulse Oximetry 97 07/09/25 18:36 Oxygen Delivery Room Air 07/09/25 18:36 Temperature 37.1 C 07/09/25 18:36 Pulse Rate 88 07/09/25 18:36 Respiratory Rate 16 07/09/25 18:36 Blood Pressure 142/88 H 07/09/25 18:36 Pulse Oximetry 97 07/09/25 18:36 Oxygen Delivery Room Air 07/09/25 18:36 Vital signs reviewed. The patient has been informed that they may have pre-hypertension or Hypertension based on a BP reading in the department. I recommend that the patient call the primary care provider listed on their discharge instructions or a physician of their choice this week to arrange follow up for further evaluation of possible pre-hypertension or Hypertension Medical Decision Making MDM Narrative Medical decision making narrative: Discussed with patient that the left lower leg does appear like he most likely has cellulitis infection. Discussed with him that we will discharge him home on some oral antibiotics for this. Discussed with patient that he needs to discuss with his doctor about going off his medications and if he would like to discontinue his medications he needs to do it in the correct manner. We will go ahead and check his blood sugar today just so he is aware of where he is at on his blood sugar monitoring and encouraged him to continue to follow-up with his doctor about discontinuing his meds also had a long discussion with the patient about making better diet choices as well as exercising and having better have it so that he can easily discontinue his meds. Differential Diagnosis Differential Diagnosis: Differential diagnosis: Contact dermatitis, poison jung, poison sumac, psoriasis, eczema, allergic reaction, drug reaction, scabies, tinea syphilis, lung disease, viral exanthema, pityriasis, erythema multiforme. Vital Signs Vital Signs: Vital Signs Temperature 37.1 C 07/09/25 18:36 Pulse Rate 88 07/09/25 18:36 Respiratory Rate 16 07/09/25 18:36 Blood Pressure 142/88 H 07/09/25 18:36 Pulse Oximetry 97 07/09/25 18:36 Oxygen Delivery Room Air 07/09/25 18:36 Temperature 37.1 C 07/09/25 18:36 Pulse Rate 88 07/09/25 18:36 Respiratory Rate 16 07/09/25 18:36 Blood Pressure 142/88 H 07/09/25 18:36 Pulse Oximetry 97 07/09/25 18:36 Oxygen Delivery Room Air 07/09/25 18:36 Lab Data Labs: Lab Results 07/09/25 Range/Units 19:04 POC Capillary Glucose 108 H (65-105) mg/dl Critical Care Time Critical Care Time Critical Care Time: No Discharge Plan Discharge Clinical Impression: Cellulitis of left anterior lower leg Patient Disposition: Home Condition: Stable Instructions: Antibiotic Form, Cellulitis (ED) Additional Instructions: Take the prescribed antibiotic medicine you are given as directed until it is gone. Take it even if you feel better. It treats the infection and stops it from returning. Not taking all the medicine can make future infections hard to treat. Keep the infected area clean. When possible, raise the infected area above the level of your heart. This helps keep swelling down. May take Tylenol ibuprofen as needed for pain Take your temperature once a day for a week to monitor for fevers. If you do spike a fever please call your doctor right away. Wash your hands often to prevent spreading the infection. In the future, wash your hands before and after you touch cuts, scratches, or bandages. This will help prevent infection. Please call your doctor today and be scheduled for follow-up appointments in regards to being evaluated for vascular disease. When to call your healthcare provider Call your healthcare provider immediately if you have any of the following: Difficulty or pain when moving the joints above or below the infected area Discharge or pus draining from the area Fever of 100.4?F (38?C) or higher, or as directed by your healthcare provider Pain that gets worse in or around the infected Redness that gets worse in or around the infected area, particularly if the area of redness expands to a wider area Shaking chills Swelling of the infected area Vomiting Patient Language: Occitan Prescriptions: New cephalexin 500 mg tablet 500 mg PO Q6H 7 Days Qty: 28 0RF cephalexin 500 mg tablet 500 mg PO Q6H 7 Days Qty: 28 0RF No Action losartan 50 mg tablet 50 mg PO DIRECTED metformin 500 mg tablet 500 mg PO DIRECTED metoprolol succinate 50 mg tablet extended release 24 hr 50 mg PO DIRECTED Follow-up/Referrals: Joni Delgado MD [Primary Care Provider, Family Practice] Time of Disposition: 19:02
[2025-07-09 18:36] VITALS: BP 142/88; PULSE 88; RESP 16; TEMP 37.1; O2SAT 97
== END 2025-07-09 19:12 | disposition home or self-care (01) ==
PROVIDERS: Emergency Provider Nurse Practitioner Family; PCP Emergency Medicine
DX: L03.116 Cellulitis of left lower limb (principal); E11.9 Type 2 diabetes mellitus without complications; Z79.84 Long term (current) use of oral hypoglycemic drugs; I10 Essential (primary) hypertension; E78.00 Pure hypercholesterolemia, unspecified; Z86.718 Personal history of other venous thrombosis and embolism
CPT/HCPCS: 82948; 99213; G0463